=== PATIENT | female | born 1965 | race African-American/Black ===

== ENCOUNTER 2020-03-29 08:17 | Emergency (ER) | payer BC, SELFPAY ==
[2020-03-29] VITALS (19 sets, daily range): BP systolic 118–136; BP diastolic 71–93; PULSE 60–69; RESP 16; TEMP 35.7; O2SAT 96–100
--- NOTE | ~2020-03-29 | CT_ITS ---
EXAMINATION: CT abdomen pelvis w con DATE: 03/29/2020 09:53 INDICATION: Lower abdominal pain TECHNIQUE: Computed tomography (CT) of the abdomen and pelvis was performed with 100 mL Omnipaque-350 intravenous contrast. Automated exposure control and iterative reconstruction technique were employe d. The dose-length product was 1522.75 mGy-cm. COMPARISON: 08/18/2018 FINDINGS: Lung bases are clear. Calcified right infrahilar lymph node consistent with old granulomatous disease . Mild cardiomegaly. No pericardial or pleural effusion. Small sliding-type hiatal hernia. Liver, gal lbladder, pancreas, bilateral adrenal glands and left kidney are normal. Unchanged 8 mm low-attenuati on right renal cyst. There is a new 2.5 x 1.6 cm lesion at the site of focal cortical scarring on the prior CT with slightly greater than simple fluid attenuation equivocal for proteinaceous/hemorrhagic cyst versus less likely solid neoplasm. Splenic calcification consistent with old granulomatous dise ase. Normal appendix. There are few scattered diverticula along the descending colon without adjacent inflammatory change to suggest diverticulitis. No bowel obstruction. Partially decompressed bladder is normal. The uterus and left ovary are not definitively identified and likely surgically absent no significant interval change in approximately 1.7 cm right adnexal cyst. No free intraperitoneal gas o r fluid. No pathologically enlarged abdominal or pelvic lymphadenopathy. Small bilateral fat-containi ng inguinal hernias. Mild thoracolumbar spondylosis. IMPRESSION: 1. No acute intra-abdominal/pelvic process. 2. 2.5 cm indeterminate right renal lesion statistically most likely to represent a complex proteinac eous/hemorrhagic cyst although differential would include solid neoplasm. Would recommend follow-up p re and postcontrast MRI or CT for further evaluation. 2. Cardiomegaly. 3. Small sliding-type hiatal hernia. 4. Small bilateral fat-containing inguinal hernias. Reviewed, dictated and finalized at location A. [employer] IMPRESSION: 1. No acute intra-abdominal/pelvic process. 2. 2.5 cm indeterminate right renal lesion statistically most likely to represe nt a complex proteinaceous/hemorrhagic cyst although differential would include solid neoplasm. Would recommend follow-up pre and postcontrast MRI or CT for f urther evaluation. 2. Cardiomegaly. 3. Small sliding-type hiatal hernia. 4. Small bilateral fat-containing inguinal hernias.
[2020-03-29 08:45] LABS: Basophils Percent Auto 0.3 % (0.2-1.2); Eosinophils Absolute Auto 0.1 K/mm3 (0-0.3); Eosinophils Percent Auto 1.2 % (0-4.4); Hematocrit 41.8 % (37.0-47.0); Hemoglobin 13.6 g/dL (12.0-15.0); Immature Granulocyte Absolute 0.02 K/mm3 (0.00-0.031); Immature Granulocyte Percent A 0.3 % (0-0.5); Lymphocytes Absolute Auto 1.99 K/mm3 (0.9-3.2); Lymphocytes Percent Auto 26.2 % (18.3-44.2); Mean Corpuscular HGB Conc 32.5 g/dl (32-36); Mean Corpuscular Hemoglobin 28.4 pg (26-34); Mean Corpuscular Volume 87.3 fl (80-100); Mean Platelet Volume 10.4 fl (7.4-10.4); Monocytes Absolute Auto 0.6 K/mm3 (0.1-0.6); Monocytes Percent Auto 7.5 % (2.6-8.5); Neutrophils Absolute Auto 4.9 K/mm3 (1.3-6.7); Neutrophils Percent Auto 64.5 % (45.5-73.1); Platelet Count Result 286 k/mm3 (150-375); Red Blood Count 4.79 M/mm3 (4.2-5.4); Red Cell Distribution Width 14.4 % (11.5-14.5); White Blood Count 7.6 K/mm3 (4.5-10.0)
[2020-03-29 08:51] LABS: Add Urine Microscopic? YES; Appearance Urine Clear (Clear); Bacteria Urine Trace /hpf; Bilirubin Urine Negative (Negative); Color Urine Yellow (Yellow); Glucose Urine UA Negative (Negative); Ketones Urine Negative (Negative); Leukocyte Esterase Ur 1+ LEU/UL (Negative); Mucus Urine Rare /lpf; Nitrate Urine Negative (Negative); Protein Urine Negative (Negative); Specific Grav Ur 1.018 (1.001-1.035); Squamous Epithelial Cell Urine Few /hpf (Few); Urobilinogen Urine Negative mg/dL (<2.0); WBC Urine 31-50 /hpf
[2020-03-29 08:54] LABS: Alanine Aminotransferase 14 U/L (4-35); Albumin Level 4.1 g/dL (3.5-5.1); Alkaline Phosphatase 120 U/L (38-126); Anion Gap 8 mmol/L (8-16); Aspartate Amino Transferase 19 U/L (14-36); Bilirubin,Total 0.5 mg/dL (0.2-1.3); Blood Urea Nitrogen 13 mg/dL (7-17); Blood Urine Negative (Negative); Calcium 9.8 mg/dL (8.4-10.2); Carbon Dioxide 30 mmol/L (22-30); Chloride 105 mmol/L (98-107); Estimated CRCL calculation 94 ml/min; Estimated Glomerular Filt Rate > 60; Glucose 105 mg/dL (65-105); Lipase 34 U/L (23-300); Potassium 4.3 mmol/L (3.4-5.0); Sodium 143 mmol/L (137-145)
--- NOTE | 2020-03-29 08:55 | ED.ABDPAIN ---
HPI - Abdominal Pain General Chief Complaint: Abdominal Pain Stated Complaint: Sent By PCPHAMZAH Pain Time Seen by Provider: 03/29/20 08:22 Source: patient Mode of arrival: ambulatory Limitations: no limitations History of Present Illness HPI narrative: This patient is a 54 year old Female who presents for evaluation of lower abdominal pain. Patient reports lower abdominal pain described as pressure that has been constant for 1 week. She reports she had similar pain 1 month ago and her PCP performed a pap smear and a urinalysis. She reports she was found to have bacterial infection on pelvis infection so she was given antibiotics. Her urinalysis was negative. She reports she was doing fine until 1 week ago. She reports nausea but denies diarrhea or vomiting. She reports normal bowel today. She reports her pain is 8/10. She has taken aleve for her pain. She has pain in her lower abdomen and lower back. She also reports urine has a strong odor and it is cloudy. Related Data Home Medications Medication Instructions Recorded Confirmed duloxetine mg PO DAILY 03/29/20 Allergies Allergy/AdvReac Type Severity Reaction Status Date / Time Penicillins Allergy Unknown Rash Verified 03/29/20 08:31 Review of Systems Review of Systems: All systems reviewed & are unremarkable except as noted in HPI and below Constitutional: Constitutional: Denies chills and Denies fever(s) Respiratory: Respiratory: Denies cough and Denies dyspnea Gastrointestinal: Gastrointestinal: Reports abdominal pain and Reports nausea Genitourinary: Genitourinary: Denies dysuria and Denies urinary incontinence [facility] Surgical History Surgical History (Updated 03/29/20 @ 09:05 by Joana Bolivar MD) S/P partial hysterectomy Exam Const: General: alert Orientation/consciousness: patient oriented x3 HENMT: Head: normocephalic and atraumatic Face and sinus: face symmetric Throat: posterior oropharynx normal, tonsils normal and uvula midline Eyes: EOM: EOMs intact bilaterally Chest: Chest palpation & inspection: normal inspection of the chest Resp: Effort & Inspection: normal respiratory effort and no retractions Auscultation: clear to auscultation bilaterally Cardio: Rate: regular rate Rhythm: regular rhythm Heart sounds: no murmurs GI: GI Palp: Yes Soft to palpation, Yes Tenderness to palpation present (GI) (bilateral lower, suprapubic), No Guarding due to palpation present (GI), No Rigid due to palpation and No Hernia present : General: Yes CVA tenderness bilateral Course Reevaluation(s) Reevaluation #1: I have reviewed with patient CT results and need to follow up with PCP for renal cyst. She will be discharged with treatment for a UTI. Date: 03/29/20 Time: 12:33 Vital Signs Vital signs: Vital Signs Temperature 96.3 F L 03/29/20 08:27 Pulse Rate 69 03/29/20 08:27 Respiratory Rate 16 03/29/20 08:27 Blood Pressure 131/86 03/29/20 08:27 Pulse Oximetry 98 03/29/20 08:27 Temperature 96.3 F L 03/29/20 08:27 Pulse Rate 60 03/29/20 14:10 Respiratory Rate 16 03/29/20 14:10 Blood Pressure 130/81 03/29/20 14:10 Pulse Oximetry 100 03/29/20 14:00 MDM - Abdominal Pain Lab Data Attestation: I reviewed the patient's lab results. Result diagrams: 03/29/20 08:37 03/29/20 08:37 Labs: Lab Results 03/29/20 03/29/20 03/29/20 Range/Units 08:37 08:37 08:37 WBC 7.6 (4.5-10.0) K/mm3 RBC 4.79 (4.2-5.4) M/mm3 Hgb 13.6 (12.0-15.0) g/dL Hct 41.8 (37.0-47.0) % MCV 87.3 (80-100) fl MCH 28.4 (26-34) pg MCHC 32.5 (32-36) g/dl RDW 14.4 (11.5-14.5) % Plt Count 286 (150-375) k/mm3 MPV 10.4 (7.4-10.4) fl Immature Gran % (Auto) 0.3 (0-0.5) % Neut % (Auto) 64.5 (45.5-73.1) % Lymph % (Auto) 26.2 (18.3-44.2) % [place] % (Auto) 7.5 (2.6-8.5) % Eos % (Auto) 1.2 (0-4.4) % Baso % (Auto) 0.3
== END 2020-03-29 14:10 | disposition home or self-care (01) ==
PROVIDERS: Emergency Provider General Practice
DX: N39.0 Urinary tract infection, site not specified (principal); N28.9 Disorder of kidney and ureter, unspecified; K44.9 Diaphragmatic hernia without obstruction or gangrene; K40.90 Unilateral inguinal hernia, without obstruction or gangrene, not specified as recurrent; I51.7 Cardiomegaly
CPT/HCPCS: 36415; 74177; 80053; 81001; 83690; 85025; 87077; 87086; 87088; 87186; 96365; 96366; 99284; J0696; Q9967